=== PATIENT | male | born 1965 | race African-American/Black ===

== ENCOUNTER 2021-05-04 12:48 | Day surgery (SDC) | payer MEDICARE, MEDICAID | END 2021-05-04 15:04 | disposition home or self-care (01) | LOC: CSHSDC/OP 12:48 | PROVIDERS: ATTEND Family Medicine | DX: Z23 Encounter for immunization (principal); U07.1 COVID-19 | CPT/HCPCS: 96365; M0243; Q0244; J3490 ==